=== PATIENT | female | born 1940 | race Caucasian/White ===

== ENCOUNTER 2016-08-15 14:51 | Inpatient (IN) | payer OTHER, MEDICAID, MEDICARE ==
[~2016-08-15] VITALS: Ht 154.9 cm; Wt 51.8 kg
--- NOTE | 2016-08-15 16:06 | PD ---
HPI Chief Complaint: Arteaga act Time Seen by Provider: 16:06 Travel History International Travel<30 days: No Contact w/Intl Traveler<30days: No Traveled to known affect area: No History of Present Illness HPI 76-year-old female came to the emergency room with history of major depression and suicidal ideation. She was Arteaga acted and brought in. Patient says that she had a hip surgery done 4 weeks ago and has been very lonely since then. Her a few years ago and she has been lonely since then. She has history of previous Arteaga act and depression and suicidal ideation. She is on antidepressants but seems like she has decompensated. Patient drinks occasional alcohol and denies of any drugs. She seemed cooperative and nonthreatening at this point but continues regarding the depression. Patient is very tearful. [facility] Past Medical History Narrative Medical List of her past medical, surgical, social and family history was reviewed from the nursing note. Social History Tobacco Use: No Allergies-Medications (Allergen,Severity, Reaction): Coded Allergies: No Known Allergies (Unverified , 08/15/16) Comments No known drug allergies. Reported Meds & Prescriptions Reported Meds & Active Scripts Active Reported Alendronate (Alendronate Sodium) 70 Mg Tab 70 Mg PO Q7D Narrative Medication List of her home medications reviewed from the nursing note. Review of Systems Except as stated in HPI: all other systems reviewed are Neg Physical Exam Narrative GENERAL: Awake, alert, elderly, tearful SKIN: Focused skin assessment warm/dry. HEAD: Atraumatic. Normocephalic. EYES: Pupils equal and round. No scleral icterus. No injection or drainage. ENT: No nasal bleeding or discharge. Mucous membranes pink and moist. NECK: Trachea midline. No JVD. CARDIOVASCULAR: Regular rate and rhythm. No murmur appreciated. RESPIRATORY: No accessory muscle use. Clear to auscultation. Breath sounds equal bilaterally. GASTROINTESTINAL: Abdomen soft, non-tender, nondistended. Hepatic and splenic margins not palpable. MUSCULOSKELETAL: No obvious deformities. No clubbing. No cyanosis. No edema. NEUROLOGICAL: Awake and alert. No obvious cranial nerve deficits. Motor grossly within normal limits. Normal speech. PSYCHIATRIC: Appropriate mood and affect; insight and judgment normal. Data Data Last Documented VS Vital Signs Date Time Temp Pulse Resp B/P Pulse Ox O2 Delivery O2 Flow Rate FiO2 08/16/16 10:43 56 16 151/68 93 Room Air 08/16/16 05:40 98.2 Orders Complete Blood Count With Diff (08/15/16 16:12) Comprehensive Metabolic Panel (08/15/16 16:12) Psych Screen (08/15/16 16:12) Drug Screen, Random Urine (08/15/16 16:12) Alcohol (Ethanol) (08/15/16 16:12) Urinalysis - C+S If Indicated (08/15/16 16:12) Thyroid Stimulating Hormone (08/15/16 16:12) Diet Regular Basic (08/15/16 Dinner) Diet Regular Basic (08/16/16 Breakfast) Urine Culture (08/16/16 01:45) Acetaminophen (Tylenol) (08/16/16 07:15) Diet Regular Basic (08/16/16 Lunch) Admit Order (Ed Use Only) (08/16/16 ) Admit To Inpatient Psych (08/16/16 ) Code Status (08/16/16 12:43) Vital Signs (Adult) [id number].[id number].E (08/16/16 12:43) Activity Oob Ad Elina (08/16/16 12:43) Level Of Observation (Psych) (08/16/16 12:43) Acetaminophen (Tylenol) (08/16/16 12:45) Magnesium Hydroxide Liq (Milk Of Magnesi (08/16/16 12:45) Al-Mag Hy-Si 40-40-4 Mg/Ml Liq (Mag-Al P (08/16/16 12:45) Basic Metabolic Panel (Bmp) (08/17/16 06:00) Lipid Profile (08/17/16 06:00) Hemoglobin (Hgb) A1c (08/17/16 06:00) Vitamin B12 (08/17/16 06:00) Pt Request For Service (08/16/16 12:43) Labs Laboratory Tests Test 08/15/16 08/16/16 16:42 01:45 Sodium Level 142 MEQ/L Potassium Level 3.9 MEQ/L Chloride Level 109 MEQ/L Carbon Dioxide Level 24.2 MEQ/L Anion Gap 9 MEQ/L Blood Urea Nitrogen 14 MG/DL Creatinine 0.60 MG/DL Estimat Glomerular Filtration 97 ML/MIN Rate Random Glucose 119 MG/DL Calcium Level 8.9 MG/DL Total Bilirubin 0.3 MG/DL Aspartate Amino Transf 19 U/L (AST/SGOT) Alanine Aminotransferase 14 U/L (ALT/SGPT) Alkaline Phosphatase 113 U/L Total Protein 7.4 GM/DL Albumin 3.9 GM/DL Thyroid Stimulating Hormone 0.914 uIU/ML 3rd Gen Urine Opiates Screen POS Urine Barbiturates Screen NEG Urine Amphetamines Screen NEG Urine Benzodiazepines Screen POS Urine Cocaine Screen NEG Urine Cannabinoids Screen NEG Ethyl Alcohol Level LESS THAN 3 MG/DL White Blood Count 9.8 TH/MM3 Red Blood Count 3.85 MIL/MM3 Hemoglobin 11.2 GM/DL Hematocrit 33.8 % Mean Corpuscular Volume 87.9 FL Mean Corpuscular Hemoglobin 29.0 PG Mean Corpuscular Hemoglobin 33.0 % Concent Red Cell Distribution Width 14.4 % Platelet Count 302 TH/MM3 Mean Platelet Volume 8.0 FL Neutrophils (%) (Auto) 59.7 % Lymphocytes (%) (Auto) 28.2 % Monocytes (%) (Auto) 8.9 % Eosinophils (%) (Auto) 2.9 % Basophils (%) (Auto) 0.3 % Neutrophils # (Auto) 5.9 TH/MM3 Lymphocytes # (Auto) 2.8 TH/MM3 Monocytes # (Auto) 0.9 TH/MM3 Eosinophils # (Auto) 0.3 TH/MM3 Basophils # (Auto) 0.0 TH/MM3 CBC Comment DIFF FINAL Differential Comment Urine Color YELLOW Urine Turbidity HAZY Urine pH 6.0 Urine Specific [place] 1.022 Urine Protein 30 mg/dL Urine Glucose (UA) NEG mg/dL Urine Ketones NEG mg/dL Urine Occult Blood NEG Urine Nitrite NEG Urine Bilirubin NEG Urine Urobilinogen LESS THAN 2.0 MG/DL Urine Leukocyte Esterase LARGE Urine RBC 82 /hpf Urine WBC 105 /hpf Urine Squamous Epithelial 4 /hpf Cells Urine Transitional Epithelial <1 /hpf Cells Urine Calcium Oxalate Crystals FEW /hpf Urine Bacteria RARE /hpf Urine Mucus FEW /lpf Microscopic Urinalysis Comment CULTURE INDICATED MDM Medical Decision Making Medical Screen Exam Complete: Yes Emergency Medical Condition: Yes Medical Record Reviewed: Yes Differential Diagnosis Major depression, suicidal ideation Narrative Course 4:42 PM awaiting for the blood test result to medically clear her. Patient will require psych screen. Procedures EKG Prior to Arrival: No Scripts Sertraline (Zoloft)100 Mg Avh325 Mg PO 2 daily #60 TAB Ref 0 Prov:Best Sam MD 08/18/16 Ropinirole (Requip)2 Mg Tab4 Mg PO 2 hs #60 TAB Ref 0 Prov:Best Sam MD 08/18/16 Oxybutynin (Ditropan)5 Mg Tab5 Mg PO BID #60 TAB Ref 0 Prov:Best Sam MD 08/18/16 Buspirone 10 Mg Tab10 Mg PO BID #60 TAB Ref 0 Prov:Best Sam MD 08/18/16 Atorvastatin 20 Mg Tab20 Mg PO HS #30 TAB Ref 0 Prov:Best Sam MD 08/18/16 Amlodipine (Norvasc)10 Mg Tab10 Mg PO DAILY #30 TAB Ref 0 Prov:Best Sam MD 08/18/16 Sanya Angelo MD Aug 15, 2016 16:06
[2016-08-15] MEDS ORDERED: ATOR20TA15 PO (16:21)
[2016-08-15] MEDS ORDERED: BUSP10TA PO (16:21)
[2016-08-15] MEDS ORDERED: ROPI4TAB PO (16:21)
[2016-08-15] MEDS ORDERED: AMLO10TA2 PO (16:21)
[2016-08-15] MEDS ORDERED: OXYB5TAB10 PO (16:21)
[2016-08-15] MEDS ORDERED: SERT-129 PO (16:21)
[2016-08-15] MEDS ORDERED: ALEN1TAB48 PO (16:21)
[2016-08-15 16:25] VITALS: BP 184/90; PULSE 65; RESP 20; TEMP 97.5; O2SAT 99
[2016-08-15 17:02] LABS: AUTOMATED NEUTROPHIL # 5.9 TH/MM3 (1.8-7.7); BASOPHIL % 0.3 % (0.0-2.0); EOSINOPHIL # 0.3 TH/MM3 (0-0.4); EOSINOPHIL % 2.9 % (0.0-4.0); HEMATOCRIT 33.8 % (35.0-46.0); HEMO FLAGS DIFF FINAL; LYMPH % 28.2 % (9.0-44.0); LYMPHOCYTE # 2.8 TH/MM3 (1.0-4.8); MEAN CELL VOLUME 87.9 FL (80.0-100.0); MONO % 8.9 % (0.0-8.0); NEUT % 59.7 % (16.0-70.0); PLATELET COUNT 302 TH/MM3 (150-450); RED BLOOD COUNT 3.85 MIL/MM3 (4.00-5.30); RED CELL DISTRIBUTION WIDTH 14.4 % (11.6-17.2); WHITE BLOOD COUNT 9.8 TH/MM3 (4.0-11.0)
[2016-08-15 17:36] LABS: ALT (GPT) 14 U/L (10-53); ANION GAP 9 MEQ/L (5-15); AST (GOT) 19 U/L (15-37); BICARBONATE 24.2 MEQ/L (21.0-32.0); BLOOD UREA NITROGEN 14 MG/DL (7-18); CHLORIDE 109 MEQ/L (98-107); GLOMERULAR FILTRATION RATE 97 ML/MIN (>89); POTASSIUM 3.9 MEQ/L (3.5-5.1); SODIUM (NA) 142 MEQ/L (136-145)
[2016-08-15 17:39] LABS: AMPHETAMINE, URINE NEG (NEG); BARBITURATES, URINE NEG (NEG); COCAINE, URINE NEG (NEG)
[2016-08-15 17:40] LABS: ALKALINE PHOSPHATASE 113 U/L (45-117); TOTAL BILIRUBIN ADULT 0.3 MG/DL (0.2-1.0)
[2016-08-15 22:05] VITALS: BP 186/79; PULSE 64; RESP 16; TEMP 97.6; O2SAT 97
[2016-08-16 01:43] VITALS: BP 147/65; PULSE 50; RESP 16; TEMP 98.1; O2SAT 93
[2016-08-16 02:04] LABS: BACTERIA, URINE RARE /hpf; BLOOD, URINE NEG (NEG); CALCIUM OXALATE CRYSTALS,URINE FEW /hpf; COMMENT (UR) CULTURE INDICATED; CULTURE IF INDICATED CULTURE INDICATED; GLUCOSE,URINE NEG (NEG); KETONE, URINE NEG (NEG); MUCUS URINE FEW /lpf (OCC); NITRITE,URINE NEG (NEG); SQUAMOUS EPITHELIAL CELL URINE 4 /hpf (0-5); TRANSITIONAL EPI CELLS, URINE <1 /hpf; URINE COLOR YELLOW (YELLW/STRAW)
[2016-08-16 05:40] VITALS: BP 131/64; PULSE 54; RESP 19; TEMP 98.2; O2SAT 94
[2016-08-16] MEDS ORDERED: ACETAMINOPHEN 325 MG TAB PO ONE (07:15)
[2016-08-16 10:43] VITALS: BP 151/68; PULSE 56; RESP 16; O2SAT 93
--- NOTE | 2016-08-16 12:39 | PD ---
History of Present Illness Chief Complaint: Depression Time Seen by Provider: 12:25 Travel History International Travel<30 Days: No Contact w/Intl Traveler<30days: No Known affected area: No Legal Status Legal Status: Arteaga Act Arteaga Act Signed By: ISRRAEL GALLEGOS History of Present Illness: History of Present Illness HPI 76-year-old female with reported history of depression who presents to the emergency room under a BA initiated by ISRRAEL at [facility]. The patient was seen at the office and verbalized that she did not care if she lived or . She also reported feeling very depressed. Stressors include the of her 2 and half years ago, no contact with family and no family in area, fell and fractured her hip 4 weeks ago, her car needs repair, the roof on her house needs repair and she has no money to take care of these issues. She states s she has been taking several different antidepressants but has had no significant benefit from such. EMR is reviewed. No previous contact with [facility] psychiatry dept. Toxicology positive for benzos and opiates which are prescribed. Patient is seen in J pod. Awake, alert. Fair hygiene. Decreased eye contact. Speech is clear and logical. No psychosis. Mood is depressed. Affect is tearful. She appears overwhelmed with multiple stressors. She is denying current sucidal ideation but states " who wouldn't want to kill themselves" . PFSH Past Medical History Depression: Yes Hypertension: Yes Influenza Vaccination: Yes ?: Not Menopausal: Yes Past Surgical History Neurologic Surgery: Yes (FX C SPINE ) Psychiatric History Psychiatric History Hx Psychiatric Treatment: HX: DEPRESSION, ANXIETY History of Inpatient Treatment: No Guns or firearms in home: No Social History female. Lives by herself. Hx Alcohol Use: Yes (occasional use) Hx Tobacco Use: No Hx Substance Use: No Hx of Substance Use Treatment: No Family Psychiatric History Negative Allergies-Medications (Allergen,Severity, Reaction): Coded Allergies: No Known Allergies (Unverified , 08/15/16) Reported Meds & Prescriptions Reported Meds & Active Scripts Active Reported Sertraline (Sertraline HCl) 100 Mg Tab 200 Mg PO DAILY Alendronate (Alendronate Sodium) 70 Mg Tab 70 Mg PO Q7D Buspirone (Buspirone HCl) 10 Mg Tab 10 Mg PO BID Ditropan (Oxybutynin Chloride) 5 Mg Tab 5 Mg PO BID Amlodipine (Amlodipine Besylate) 10 Mg Tab 10 Mg PO DAILY Atorvastatin (Atorvastatin Calcium) 20 Mg Tab 20 Mg PO HS Ropinirole 4 Mg Tab 4 Mg PO HS Review of Systems Constitutional: COMPLAINS OF: Change in appetite Endocrine: DENIES: Abnorml menstrual pattern, Heat/cold intolerance, Polydipsia , Polyuria, Polyphagia Eyes: DENIES: Blurred vision, Diplopia, Eye inflammation, Eye pain, Vision loss , Photosensitivity, Double Vision Ears, nose, mouth, throat: DENIES: Tinnitus, Hearing loss, Vertigo, Nasal discharge, Oral lesions, Throat pain, Hoarseness, Ear Pain, Running Nose, Epistaxis, Sinus Pain, Toothache, Odynophagia Respiratory: DENIES: Apneas, Cough, Snoring, Wheezing, Hemoptysis, Sputum production, Shortness of breath Cardiovascular: DENIES: Chest pain, Palpitations, Syncope, Dyspnea on Exertion , PND, Lower Extremity Edema, Orthopnea, Claudication Gastrointestinal: COMPLAINS OF: Anorexia Genitourinary: DENIES: Abnormal vaginal bleeding, Dysmenorrhea, Dyspareunia, Sexual dysfunction, Urinary frequency, Urinary incontinence, Urgency, Hematuria , Dysuria, Nocturia, Vaginal discharge Musculoskeletal: COMPLAINS OF: Back pain Integumentary: DENIES: Abnormal pigmentation, Pruritus, Rash, Nail changes, Breast masses, Breast skin changes, Nipple discharge Hematologic/lymphatic: DENIES: Bruising, Lymphadenopathy Immunologic/allergic: DENIES: Eczema, Urticaria Neurologic: COMPLAINS OF: Poor Balance (due to recent hip fx) Psychiatric: COMPLAINS OF: Depression, Suicidal Ideation Exam Alert: Yes Maiden: Person (ox4) Mood: Depressed Affect: Tearful Speech: Clear, Logical Eye Contact: None Memory Intact: Comment (not impaired) Hallucinations: Other (negative) Delusions: No Suicidal: Ideation (deneis at present) Homicidal: Ideation (Negative) Insight/Judgement Poor. Not impaired. MDM Medical Decision Making Medical Record Reviewed: Yes Assessment/Plan 76 year old female with hx of depression, multiple stressors who was placed under a BA at her doctor's office. Patient reported to them she was severely depressed and didn't care if she was alive or . The patient certainly presents with significant depression, no social or family support and failed response to current antidepressant treatment. At this time she meets criteria for increased in level of care such as inpatient treatment for further observation, to adjust medications, maintain safety. Orders Complete Blood Count With Diff (08/15/16 16:12) Comprehensive Metabolic Panel (08/15/16 16:12) Psych Screen (08/15/16 16:12) Drug Screen, Random Urine (08/15/16 16:12) Alcohol (Ethanol) (08/15/16 16:12) Urinalysis - C+S If Indicated (08/15/16 16:12) Thyroid Stimulating Hormone (08/15/16 16:12) Diet Regular Basic (08/15/16 Dinner) Diet Regular Basic (08/16/16 Breakfast) Urine Culture (08/16/16 01:45) Acetaminophen (Tylenol) (08/16/16 07:15) Diet Regular Basic (08/16/16 Lunch) Diet Regular Basic (08/16/16 Dinner) Results Vital Signs Date Time Temp Pulse Resp B/P Pulse Ox O2 Delivery O2 Flow Rate FiO2 08/16/16 10:43 56 16 151/68 93 Room Air 08/16/16 05:40 98.2 54 19 131/64 94 Room Air 08/16/16 01:43 98.1 50 16 147/65 93 Room Air 08/15/16 22:05 97.6 64 16 186/79 97 Room Air 08/15/16 16:25 97.5 65 20 184/90 99 Laboratory Tests Test 08/15/16 08/16/16 16:42 01:45 Sodium Level 142 Potassium Level 3.9 Chloride Level 109 Carbon Dioxide Level 24.2 Anion Gap 9 Blood Urea Nitrogen 14 Creatinine 0.60 Estimat Glomerular Filtration 97 Rate Random Glucose 119 Calcium Level 8.9 Total Bilirubin 0.3 Aspartate Amino Transf 19 (AST/SGOT) Alanine Aminotransferase 14 (ALT/SGPT) Alkaline Phosphatase 113 Total Protein 7.4 Albumin 3.9 Thyroid Stimulating Hormone 0.914 3rd Gen Urine Opiates Screen POS Urine Barbiturates Screen NEG Urine Amphetamines Screen NEG Urine Benzodiazepines Screen POS Urine Cocaine Screen NEG Urine Cannabinoids Screen NEG Ethyl Alcohol Level LESS THAN 3 White Blood Count 9.8 Red Blood Count 3.85 Hemoglobin 11.2 Hematocrit 33.8 Mean Corpuscular Volume 87.9 Mean Corpuscular Hemoglobin 29.0 Mean Corpuscular Hemoglobin 33.0 Concent Red Cell Distribution Width 14.4 Platelet Count 302 Mean Platelet Volume 8.0 Neutrophils (%) (Auto) 59.7 Lymphocytes (%) (Auto) 28.2 Monocytes (%) (Auto) 8.9 Eosinophils (%) (Auto) 2.9 Basophils (%) (Auto) 0.3 Neutrophils # (Auto) 5.9 Lymphocytes # (Auto) 2.8 Monocytes # (Auto) 0.9 Eosinophils # (Auto) 0.3 Basophils # (Auto) 0.0 CBC Comment DIFF FINAL Differential Comment Urine Color YELLOW Urine Turbidity HAZY Urine pH 6.0 Urine Specific [place] 1.022 Urine Protein 30 Urine Glucose (UA) NEG Urine Ketones NEG Urine Occult Blood NEG Urine Nitrite NEG Urine Bilirubin NEG Urine Urobilinogen LESS THAN 2.0 Urine Leukocyte Esterase LARGE Urine RBC 82 Urine WBC 105 Urine Squamous Epithelial 4 Cells Urine Transitional Epithelial <1 Cells Urine Calcium Oxalate Crystals FEW Urine Bacteria RARE Urine Mucus FEW Microscopic Urinalysis Comment CULTURE INDICATED Date/Time Procedure Status Source Growth 08/16/16 01:45 Urine Culture Received Urine Clean Catch Pending Diagnosis Primary Impression: Depression Admitting Information Admitting Physician Requests: Admit (Dr. Sam) Problem Qualifiers Primary Impression: Depression Qualified Code: F32.1 - Moderate single current episode of major depressive disorder Roxy Cody Aug 16, 2016 12:39
[2016-08-16] MEDS ORDERED: MAGNESIUM HYDROXIDE SUSP 30 ML CUP PO PRN ×2 (12:45→15:15)
[2016-08-16] MEDS ORDERED: ALUMINUM/MAGNESIUM/SIMETH 30 ML CUP PO PRN ×2 (12:45→15:15)
[2016-08-16] MEDS ORDERED: ACETAMINOPHEN 325 MG TAB PO PRN ×2 (12:45→15:15)
[2016-08-16 14:30] VITALS: BP 151/68; PULSE 56; RESP 16; O2SAT 93
[2016-08-16 14:55] VITALS: BP_SYST 141; BP_SYST 188; BP_DIAS 56; BP_DIAS 72; PULSE 61; PULSE 86; RESP 16; TEMP 96.8; O2SAT 97; O2SAT 98
[2016-08-16] MEDS ORDERED: ALENDRONATE SODIUM 70 MG TAB PO SCH (15:15)
[2016-08-16] MEDS: SERTRALINE HCL 100 MG TAB PO SCH (15:45)
--- NOTE | 2016-08-16 15:45 | HHI.HP ---
Provisional Diagnosis Admission Date Aug 16, 2016 at 12:46 [place] I. Major depressive disorder recurrent severe without psychosis f 33.2 Certification of Person's Competence To Provide Express and Informed Consent I have personally examined Indigo Tong , a person being served at [facility] on, Aug 16, 2016 15:23. Express and informed consent means consent voluntarily given in writing, by a competent person, after sufficient explanation and disclosure of the subject matter involved to enable the person to make a knowing and willful decision without any element of force, fraud, deceit, duress, or other form of constraint or coercion. This person is 18 years of age or older, is not now known to be incompetent to consent to treatment with a guardian advocate, and does not have a health care surrogate or proxy currently making medical treatment decisions. I have found this person to be one of the following: [xxx] Competent to provide express and informed consent, as defined above, for voluntary admission to this facility and is competent to provide express and informed consent for treatment. He/she has the consistent capacity to make well reasoned, willful, and knowing decisions concerning his or her medical or mental health treatment. The person fully and consistently understands the purpose of the admission for examination/placement and is fully capable of personally exercising all rights assured [place] Incompetent to provide express and informed consent to voluntary admission, and this is incompetent to provide express and informed consent to treatment. The person must be transferred to involuntary status and a petition for a guardian advocate filed with the Circuit Court. [] Refusing to provide express and informed consent to voluntary admission but is competent to provide express and informed consent for treatment. The person must be discharged or transferred to involuntary status. Form shall be completed within 24 hours of a person's arrival at the receiving facility and filed in the clinical record of each person: 1. Admitted on a voluntary basis 2. Permitted to provide express and informed consent to his/her own treatment 3. Allowed to transfer from involuntary to voluntary status 4. Prior to permitting a person to consent to his or her own treatment after having been previously found incompetent to consent to treatment. History of Present Illness Capacity: Has Capacity HPI Patient is a 76-year-old white female comes here under [place] act signed by Ximena ARCOS 80 08/15/16 at 11:36 AM that document reviewed essentially stating that patient does not care whether she lives or dies states she is severely depressed is [place] acted about 2 or 3 years ago she also stated that she has no contact with family and . Patient seen screened in the ED urine toxicology positive for opiates and benzodiazepines. At the present time patient sitting quietly in a chair in the [place] her Brie present throughout session. Patient then slight slender white female alcohol the walker secondary to her for a fractured hip 4 weeks ago. She also gives a history of a fractured neck over a year ago. She is also distress with a of her of 30+ years but 20th of years ago. And the fact that she has no significant indication with her 4 adult children. She states she is very lonely. She has no significant support group here in town. She does acknowledge prior history of depression has seen a psychiatrist in the past did overdose one time on one of her medications. She is on Zoloft at the present time being prescribed by her PCP. Is any other inpatient psychiatric hospitalization she said she was at [facility]. [place] that she denies any history of physical or sexual abuse. Denies any alcohol or drug use. She denies any voices or visions with this. Says her sleep is somewhat increased, and somewhat productive. Sister appetite is fair. She denies voices or visions with this. As mentioned denies any self-medicating. She lives by herself she has 2 cats that are control room tender for her. Of interest patient denies any opiate or benzodiazepine use. Will recheck the urine tox tomorrow In any event at the present time patient does meet criteria for an acute inpatient psychiatric hospitalization to monitor safety stability medication management and also to reevaluate her medical condition. However I do feel patient has capacity to make decisions concerning her admission her care thus I' ll lift the [place] act allow her sign voluntary. We will of hospitalist consult with us. We'll continue her medications per the med reconciliation consider the addition of a small dose of Seroquel and one or 2 days if she does not improve with the ability Review of Systems Constitutional: COMPLAINS OF: Weight loss, DENIES: Diaphoretic episodes, Fatigue, Fever, Chills, Dizziness, Change in appetite, Night Sweats Endocrine: DENIES: Abnorml menstrual pattern, Heat/cold intolerance, Polydipsia , Polyuria, Polyphagia Eyes: DENIES: Blurred vision, Diplopia, Eye inflammation, Eye pain, Vision loss , Photosensitivity, Double Vision Ears, nose, mouth, throat: DENIES: Tinnitus, Hearing loss, Vertigo, Nasal discharge, Oral lesions, Throat pain, Hoarseness, Ear Pain, Running Nose, Epistaxis, Sinus Pain, Toothache, Odynophagia Respiratory: DENIES: Apneas, Cough, Snoring, Wheezing, Hemoptysis, Sputum production, Shortness of breath Cardiovascular: DENIES: Chest pain, Palpitations, Syncope, Dyspnea on Exertion , PND, Lower Extremity Edema, Orthopnea, Claudication Gastrointestinal: DENIES: Abdominal pain, Black stools, Bloody stools, Constipation, Diarrhea, Nausea, Vomiting, Difficulty Swallowing, Anorexia Genitourinary: DENIES: Abnormal vaginal bleeding, Dysmenorrhea, Dyspareunia, Sexual dysfunction, Urinary frequency, Urinary incontinence, Urgency, Hematuria , Dysuria, Nocturia, Vaginal discharge Musculoskeletal: COMPLAINS OF: Joint pain Integumentary: DENIES: Abnormal pigmentation, Pruritus, Rash, Nail changes, Breast masses, Breast skin changes, Nipple discharge Hematologic/lymphatic: DENIES: Bruising, Lymphadenopathy Immunologic/allergic: DENIES: Eczema, Urticaria Neurologic: COMPLAINS OF: Abnormal gait (secondary to fractured hip), Poor Balance Psychiatric: COMPLAINS OF: Anxiety, Depression, Suicidal Ideation (though denies any intent or plan) Past Psych History Psychological trauma history Denies physical or sexual abuse Violence risk - others (6 mos) Low Violence risk - self (6 mos) Low Substance Abuse History Drugs/Alcohol past 12 months Denies Past Family Social History Coded Allergies: No Known Allergies (Unverified , 08/15/16) Past Medical History History fracture neck fractured hip Reported Medications Sertraline 100 Mg [id number] Mg PO DAILY Ref 0 08/15/16 Alendronate 70 Mg Tab70 Mg PO Q7D Ref 0 08/15/16 Buspirone 10 Mg Tab10 Mg PO BID Ref 0 08/15/16 Oxybutynin (Ditropan)5 Mg Tab5 Mg PO BID Ref 0 08/15/16 Amlodipine 10 Mg Tab10 Mg PO DAILY Ref 0 08/15/16 Atorvastatin 20 Mg Tab20 Mg PO HS Ref 0 08/15/16 Ropinirole 4 Mg Tab4 Mg PO HS Ref 0 08/15/16 Current Medications Medications (Trade) Dose Ordered Sig/Akhil Route Start Time Stop Time Status Last Admin (Tylenol) 650 mg Q4H PRN PO 08/16/16 12:45 (Milk Of Magnesia Liq) 30 ml DAILY PRN PO 08/16/16 12:45 (Mag-Al Plus Susp Liq) 30 ml Q6H PRN PO 08/16/16 12:45 (Norvasc) 10 mg DAILY PO 08/17/16 09:00 (Lipitor) 20 mg HS PO 08/16/16 21:00 (Buspar) 10 mg BID PO 08/16/16 21:00 (Ditropan) 5 mg BID PO 08/16/16 21:00 (Requip) 4 mg HS PO 08/16/16 21:00 (Tylenol) 650 mg Q4H PRN PO 08/16/16 15:15 UNV (Milk Of Magnesia Liq) 30 ml DAILY PRN PO 08/16/16 15:15 UNV (Mag-Al Plus Susp Liq) 30 ml Q6H PRN PO 08/16/16 15:15 UNV (Fosamax) 70 mg Q7D PO 08/16/16 15:15 UNV (Zoloft) 200 mg DAILY PO 08/16/16 15:15 UNV Family History Denies mental health issues and family Social History Patient about 2 years ago still refer her is somewhat ostracized from her 4 adult children Patient's Strengths (min. 2) Patient verbal able access healthcare cooperative Physical Exam Patient seen screened in ED exam reviewed and agreed with patient sitting in chair in [place] using walker patient no acute distress she is thin the slight slender neck is supple, in no respiratory distress, abdomen soft, there is some decreased range of motion in both legs primarily in her right no abnormal motor movements noted Vital Signs Vital Signs Date Time Temp Pulse Resp B/P Pulse Ox O2 Delivery O2 Flow Rate FiO2 08/16/16 14:55 96.8 61 16 188/72 98 08/16/16 14:30 Room Air Mental Status Examination Alert oriented then slender white female she short crewcut graying hair calm cooperative with good eye contact occasionally somewhat tearful occasional small smile Appearance Clean the Speech: Unremarkable Orientation: x3 Memory: Unremarkable Thought Process: Logical Thought Content: Unremarkable Language Fair Fund of Knowledge Fair Hallucination Type: None Attention and Concentration: Good Suicidal Ideation: No Previous Suicide Attempts: No Homicidal Ideation: No Previous Homicide Attempts: No Insight: Fair Judgment: WNL (fair) Affect: Other Mood: Sad (slight increased range and intensity) Motor Activity: Abnormal gait-specify (secondary to fractured hip) Assessment & Plan Problem List: (1) Major depressive disorder, recurrent severe without psychotic features ICD Code: F33.2 Assessment & Plan Estimated LOS: 3-5 days at this time patient meets criteria for inpatient psychiatric hospitalization I feel she has capacity sign for medications at admission thus I'll lift [place] act allow her sign voluntary. Will adjust medications will hospitalist assessment will have PT also games dealer. We also need to see if our counselors can help us find some socialization for this lady she appears quite lonely Discharge Planning To be determined Request HC Surrog/Guard Advoc?: No Best Sam MD Aug 16, 2016 15:45
[2016-08-16] MEDS: OXYBUTYNIN CHLORIDE 5 MG TAB PO SCH (21:37)
[2016-08-16] MEDS: busPIRone HCL 10 MG TAB PO SCH (21:37)
[2016-08-16] MEDS: ATORVASTATIN 20 MG TAB PO SCH (21:37)
[2016-08-17 05:40] VITALS: BP 119/58; PULSE 51; RESP 14; TEMP 99.3; O2SAT 94
[2016-08-17] MEDS: busPIRone HCL 10 MG TAB PO SCH ×2 (09:11→21:22)
[2016-08-17] MEDS: OXYBUTYNIN CHLORIDE 5 MG TAB PO SCH ×2 (09:11→21:22)
[2016-08-17] MEDS: SERTRALINE HCL 100 MG TAB PO SCH (09:11)
[2016-08-17 11:26] LABS: ANION GAP 7 MEQ/L (5-15); BICARBONATE 27.8 MEQ/L (21.0-32.0); BLOOD UREA NITROGEN 15 MG/DL (7-18); CHLORIDE 106 MEQ/L (98-107); GLOMERULAR FILTRATION RATE 132 ML/MIN (>89); POTASSIUM 3.8 MEQ/L (3.5-5.1); SODIUM (NA) 141 MEQ/L (136-145)
[2016-08-17 11:55] LABS: LDL CHOLESTEROL 42 MG/DL (0-99)
--- NOTE | 2016-08-17 14:04 | PD.CONS ---
[facility] By Cecy Reason for Consult Medical management Primary Care Physician Abraham Sylvester MD Diagnoses: History of Present Illness Written by ISRRAEL Pennington acting as scribe for [Sekou] on 08/17/16 at 12:05. 76 y/o female with a history of depression, htn and HLD came to the hospital because she was more depressed than normal. [facility] was consulted for medical management. 4 weeks ago she had a right hip replacement and went to rehab but after rehab she was home and was feeling lonely. She does not feel she belongs in the psych department and feels it is making her worse. She denies any chest pain, sob, fever or chills. Review of Systems Constitutional: DENIES: Fever, Chills, Change in appetite Respiratory: DENIES: Cough, Sputum production, Shortness of breath Cardiovascular: DENIES: Chest pain Gastrointestinal: DENIES: Abdominal pain, Constipation, Diarrhea, Nausea, Vomiting Genitourinary: DENIES: Hematuria, Dysuria Musculoskeletal: DENIES: Back pain, Neck pain Neurologic: DENIES: Headache Psychiatric: COMPLAINS OF: Depression Past Family Social History Allergies: Coded Allergies: No Known Allergies (Unverified , 08/15/16) Past Medical History HTN HLD Depression Past Surgical History Right hip replacement cervical spine surgery Morphine pump implant Reported Medications Reported Meds & Active Scripts Active Reported Sertraline (Sertraline HCl) 100 Mg Tab 200 Mg PO DAILY Alendronate (Alendronate Sodium) 70 Mg Tab 70 Mg PO Q7D Buspirone (Buspirone HCl) 10 Mg Tab 10 Mg PO BID Ditropan (Oxybutynin Chloride) 5 Mg Tab 5 Mg PO BID Amlodipine (Amlodipine Besylate) 10 Mg Tab 10 Mg PO DAILY Atorvastatin (Atorvastatin Calcium) 20 Mg Tab 20 Mg PO HS Ropinirole 4 Mg Tab 4 Mg PO HS Active Ordered Medications Current Medications Medications (Trade) Dose Ordered Sig/Akhil Route Start Time Stop Time Status Last Admin (Tylenol) 650 mg Q4H PRN PO 08/16/16 12:45 (Milk Of Magnesia Liq) 30 ml DAILY PRN PO 08/16/16 12:45 (Mag-Al Plus Susp Liq) 30 ml Q6H PRN PO 08/16/16 12:45 (Norvasc) 10 mg DAILY PO 08/17/16 09:00 08/17/16 09:11 (Lipitor) 20 mg HS PO 08/16/16 21:00 08/16/16 21:37 (Buspar) 10 mg BID PO 08/16/16 21:00 08/17/16 09:11 (Ditropan) 5 mg BID PO 08/16/16 21:00 08/17/16 09:11 (Requip) 4 mg HS PO 08/16/16 21:00 08/16/16 21:39 (Zoloft) 200 mg DAILY PO 08/16/16 15:45 08/17/16 09:11 Family History Mom: Breast CA Dad: Emphysema Social History Tobacco use: Quit 30 years ago Alcohol use: socially Illicit drug use: denies Physical Exam Vital Signs Vital Signs Date Time Temp Pulse Resp B/P Pulse Ox O2 Delivery O2 Flow Rate FiO2 08/17/16 05:40 99.3 51 14 119/58 94 08/16/16 14:55 96.8 61 16 188/72 98 08/16/16 14:30 56 16 151/68 93 Room Air Physical Exam GENERAL: This is a well-nourished, well-developed patient, in no apparent distress. SKIN: No rashes, ecchymoses or lesions. Cool and dry. HEAD: Atraumatic. Normocephalic. No temporal or scalp tenderness. EYES: Pupils equal round and reactive. Extraocular motions intact. ENT: Nose without bleeding, purulent drainage or septal hematoma. Airway patent. NECK: Trachea midline. No JVD or lymphadenopathy. Supple, nontender, no meningeal signs. CARDIOVASCULAR: Regular rate and rhythm without murmurs, gallops, or rubs. RESPIRATORY: Clear to auscultation. Breath sounds equal bilaterally. No wheezes , rales, or rhonchi. GASTROINTESTINAL: Abdomen soft, non-tender, nondistended. No guarding. MUSCULOSKELETAL: Extremities without clubbing, cyanosis, or edema. No joint tenderness, effusion, or edema noted. No calf tenderness. NEUROLOGICAL: Awake and alert. Motor and sensory grossly within normal limits. Five out of 5 muscle strength in all muscle groups. Normal speech. Laboratory Laboratory Tests Test 08/17/16 10:09 Sodium Level 141 Potassium Level 3.8 Chloride Level 106 Carbon Dioxide Level 27.8 Anion Gap 7 Blood Urea Nitrogen 15 Creatinine 0.46 Estimat Glomerular Filtration 132 Rate Random Glucose 93 Calcium Level 8.6 Triglycerides Level 150 Cholesterol Level 111 LDL Cholesterol 42 HDL Cholesterol 39.0 Cholesterol/HDL Ratio 2.84 Vitamin B12 Level 572 Date/Time Procedure Status Source Growth 08/16/16 01:45 Urine Culture Received Urine Clean Catch Pending Result Diagram: 08/15/16 1642 08/17/16 1009 Assessment and Plan Problem List: (1) HTN (hypertension) ICD Code: I10 Status: Acute (2) HLD (hyperlipidemia) ICD Code: E78.5 Status: Chronic (3) Major depressive disorder, recurrent severe without psychotic features ICD Code: F33.2 Status: Chronic Assessment and Plan 76 y/o female with a history of depression, htn and HLD came to the hospital because she was more depressed than normal. [facility] was consulted for medical management. Major depressive disorder -Managed by psychiatry HTN, chronic, stable -Cont home amlodipine -Monitor vitals -Will order PRNs if needed HLD, chronic -Cont home dose Lipitor DVT prophylaxis: Ambulation This note was transcribed by scribe [Natacha Foreman]. I, Dr. Low Sapp personally performed the history, physical exam, and medical decision making; and confirmed the accuracy of the information in the transcribed note. Authenticated by Dr. Low Sapp on 08/17/16 at 1210. Thank you for the consult. We will sign off for now. Please call with questions and reconsult if needed. Discussed Condition With Patient Natacha Foreman Aug 17, 2016 14:04 Low Sapp MD Aug 17, 2016 16:35
--- NOTE | 2016-08-17 15:23 | HHI.PYPN ---
Subjective Remarks Patient seen on unit with floor staff, chart reviewed,, patient continues depressed and sad though she is more reactive right now did sleep better last night. Though she is still tearful and refrained her and her living situation. I feel patient would benefit from increased socialization that is available on 2599 will transfer patient to that unit continue treatment Review of Systems Except as stated in HPI: all other systems reviewed are Neg Objective Alert: Yes [place]: Person (ox4) Mood: Depressed Affect: Tearful Memory Intact: Comment (not impaired) Hallucinations: Other (negative) Delusions: No Delusion Type: Other (denied) Suicidal: Ideation (deneis at present) Homicidal: Ideation (Negative) Insight/Judgment Poor Labs Test 08/17/16 10:09 Sodium Level 141 MEQ/L Potassium Level 3.8 MEQ/L Chloride Level 106 MEQ/L Carbon Dioxide Level 27.8 MEQ/L Anion Gap 7 MEQ/L Blood Urea Nitrogen 15 MG/DL Creatinine 0.46 MG/DL Estimat Glomerular Filtration 132 ML/MIN Rate Random Glucose 93 MG/DL Calcium Level 8.6 MG/DL Triglycerides Level 150 MG/DL Cholesterol Level 111 MG/DL LDL Cholesterol 42 MG/DL HDL Cholesterol 39.0 MG/DL Cholesterol/HDL Ratio 2.84 RATIO Vitamin B12 Level 572 PG/ML Date/Time Procedure Status Source Growth 08/16/16 01:45 Urine Culture - Preliminary Resulted Urine Clean Catch Group D Enterococcus Vitals/IOs Vital Signs Date Time Temp Pulse Resp B/P Pulse Ox O2 Delivery O2 Flow Rate FiO2 08/17/16 05:40 99.3 51 14 119/58 94 08/16/16 14:30 Room Air Intake and Output 08/16/16 08/16/16 08/17/16 08:00 16:00 00:00 Intake Total 240 ml Balance 240 ml Assessment & Plan Problem List: (1) Major depressive disorder, recurrent severe without psychotic features ICD Code: F33.2 Assessment & Plan Estimated LOS: days patient continues depressed, compliant medication, still feels quite lonely. I feel patient would be better treated on 2599 with his increase socialization will transfer to that unit Justification for Cont. Inpt. At this time patient will decompensate placed in a lower level of care Discharge Planning To be determined Request HC Surrog/Guard Advoc?: No Best Sam MD Aug 17, 2016 15:23
[2016-08-17 16:15] LABS: HEMOGLOBIN A1a 1.2 %; HEMOGLOBIN A1b 0.7 %; HEMOGLOBIN Ao 85.8 %; HEMOGLOBIN F 1.1 %; HEMOGLOBIN LA1C 1.9 %; HEMOGLOBIN P3 3.7 %
[2016-08-17 18:02] VITALS: BP 124/60; PULSE 59; RESP 16; TEMP 99; O2SAT 97
[2016-08-17] MEDS: ATORVASTATIN 20 MG TAB PO SCH (21:22)
[2016-08-18 06:32] VITALS: BP 135/59; PULSE 62; RESP 16; TEMP 97.9; O2SAT 94
[2016-08-18] MEDS: OXYBUTYNIN CHLORIDE 5 MG TAB PO SCH (09:45)
[2016-08-18] MEDS: busPIRone HCL 10 MG TAB PO SCH (09:45)
[2016-08-18] MEDS: SERTRALINE HCL 100 MG TAB PO SCH (09:45)
[2016-08-18] MEDS ORDERED: ATOR20TA15 PO (11:13)
[2016-08-18] MEDS ORDERED: OXYB5TAB10 PO (11:13)
[2016-08-18] MEDS ORDERED: BUSP10TA PO (11:13)
[2016-08-18] MEDS ORDERED: AMLO10 PO (11:13)
[2016-08-18] MEDS ORDERED: ROPI2 PO (11:13)
[2016-08-18] MEDS ORDERED: ZOLO100T PO (11:13)
--- NOTE | 2016-08-18 11:19 | HHI.DS ---
Psychiatry Discharge Summary Inpatient Psychiatric care?: Yes Advance Directive: No Reason Not Provided: gave [facility] AdvanceDirective: No Health Care Proxy: No Admission Admission Date Aug 16, 2016 at 12:46 Admission Diagnosis: (1) Major depressive disorder, recurrent severe without psychotic features ICD Code: F33.2 Brief History Patient is a 76-year-old white female comes here under [place] act signed by Ximena Gaston 08/15/16 at 11:36 AM that document reviewed essentially stating that patient does not care whether she lives or dies states she is severely depressed is [place] acted about 2 or 3 years ago she also stated that she has no contact with family and . Patient seen screened in the ED urine toxicology positive for opiates and benzodiazepines. At the present time patient sitting quietly in a chair in the [place] her [place] present throughout session. Patient then slight slender white female alcohol the walker secondary to her for a fractured hip 4 weeks ago. She also gives a history of a fractured neck over a year ago. She is also distress with a of her of 30+ years but 20th of years ago. And the fact that she has no significant indication with her 4 adult children. She states she is very lonely. She has no significant support group here in town. She does acknowledge prior history of depression has seen a psychiatrist in the past did overdose one time on one of her medications. She is on Zoloft at the present time being prescribed by her PCP. Is any other inpatient psychiatric hospitalization she said she was at [facility]. [place] [place] that she denies any history of physical or sexual abuse. Denies any alcohol or drug use. She denies any voices or visions with this. Says her sleep is somewhat increased, and somewhat productive. Sister appetite is fair. She denies voices or visions with this. As mentioned denies any self-medicating. She lives by herself she has 2 cats that are pot feeder for her. Of interest patient denies any opiate or benzodiazepine use. Will recheck the urine tox tomorrow In any event at the present time patient does meet criteria for an acute inpatient psychiatric hospitalization to monitor safety stability medication management and also to reevaluate her medical condition. However I do feel patient has capacity to make decisions concerning her admission her care thus I' ll lift the [place] act allow her sign voluntary. We will of hospitalist consult with us. We'll continue her medications per the med reconciliation consider the addition of a small dose of Seroquel and one or 2 days if she does not improve with the ability Tobacco Use In Past 30 Days: No Tobacco Past 30 Days Alcohol Use: 2-4 Times Per Month Hospital Course Patient's mood improved fairly rapidly with her participation in milieu especially when transferred to the 2600 unit. She was compliant with the medications. She consistently and persistently denied suicidality homicidality voices or visions. She said she was feeling better and sleeping better. She also stated that she missed her to her pet cats quite a bit wanted to get home to them. She did request discharge today. Patient does not meet criteria for involuntary psychiatric hospitalization. I will respect her request patient to be discharged states were self Rx 1 month strong recommendation for mental health follow-up through [employer] act, strong recommendation for follow- up with [facility] outpatient support groups. Thus patient will be discharged today Results Blood Pressure 135 / 59 Vital Signs Date Time Temp Pulse Resp B/P Pulse Ox O2 Delivery O2 Flow Rate FiO2 08/18/16 06:32 97.9 62 16 135/59 94 08/16/16 14:30 Room Air Laboratory Tests Test 08/15/16 08/16/16 08/17/16 16:42 01:45 10:09 Chloride Level 109 MEQ/L (98-107) Random Glucose 119 MG/DL (74-106) Urine Opiates Screen POS (NEG) Urine Benzodiazepines Screen POS (NEG) Red Blood Count 3.85 MIL/MM3 (4.00-5.30) Hemoglobin 11.2 GM/DL (11.6-15.3) Hematocrit 33.8 % (35.0-46.0) Monocytes (%) (Auto) 8.9 % (0.0-8.0) Urine Turbidity HAZY (CLEAR) Urine Protein 30 mg/dL (NEG-TRACE) Urine Leukocyte Esterase LARGE (NEG) Urine RBC 82 /hpf (0-3) Urine WBC 105 /hpf (0-5) Urine Calcium Oxalate Crystals FEW /hpf (NONE) Urine Bacteria RARE /hpf (NONE) Urine Mucus FEW /lpf (OCC) Creatinine 0.46 MG/DL (0.50-1.00) Cholesterol Level 111 MG/DL (120-200) HDL Cholesterol 39.0 MG/DL (40.0-60.0) Laboratory Results Test 08/17/16 10:09 Hemoglobin A1c 5.4 % (4.3-6.0) Triglycerides Level 150 MG/DL (42-150) Cholesterol Level 111 MG/DL (120-200) LDL Cholesterol 42 MG/DL (0-99) HDL Cholesterol 39.0 MG/DL (40.0-60.0) Summary of Procedures None done Pending results at discharge: No Medications # of Antipsychotic meds at D/C: 0 Approp Antipsych med options 1 - Minimum of three failed multiple trials of monotherapy. 2 - Documented plan to taper to monotherapy due to previous use of multiple meds OR cross-taper in progress at D/C. 3 - Documentation of augmentation of Clozapine. 4 - Justification other than those listed in allowable values 1-3, document here : Discharge Discharge Date: Aug 18, 2016 Discharge Diagnosis: (1) Major depressive disorder, recurrent severe without psychotic features Diagnosis: Principal ICD Code: F33.2 Mental Status Exam at Disch Alert oriented white female appears stated age sitting quietly in the day room, she has normal active with slight guarding when she walks secondary to her 1 month old hip surgery. She is euthymic to moderately depressed good range intensity were affect. Speech rate and rhythm are within normal limits though no formal thought disorders. No auditory or visual hallucinations no delusions noted insight and judgment is poor to fair. Cognition grossly intact Pt Condition on Discharge: Stable Discharge Disposition: Discharge Home Discharge Instructions Diet Instructions: As Tolerated, No Restrictions Activities you can perform: Regular-No Restrictions Scheduled Appointment: Kyler Aguirre (also referred to [facility] outpatient) Discharge Time > 30 minutes Discharge/Advance Care Plan Health Problems: (1) Major depressive disorder, recurrent severe without psychotic features Goals to promote your health * To prevent worsening of your condition and complications * To maintain your health at the optimal level Directions to meet your goals Take your medications as prescribed Follow your dietary instruction Follow activity as directed Keep your appointments as scheduled Take your immunizations and boosters as scheduled If your symptoms worsen call your PCP, if no PCP go to Urgent Care Center or Emergency Room For 25/09 questions related to your inpatient stay or results of tests pending at discharge, please contact Dr. Best Sam at Smoking is Dangerous to Your Health. Avoid second hand smoking Best Sam MD Aug 18, 2016 11:19
== END 2016-08-18 15:15 | disposition home or self-care (01) | DRG 885 ==
LOC: NEPD 14:51 → NEDA 08-16 12:46 → H250 08-16 14:10 → H260 08-17 17:24
PROVIDERS: ADMIT Psychiatry & Neurology Psychiatry; ATTEND Psychiatry & Neurology Psychiatry
DX: F33.2 Major depressive disorder, recurrent severe without psychotic features (principal); R45.851 Suicidal ideations; I10 Essential (primary) hypertension; E78.5 Hyperlipidemia, unspecified; Z96.641 Presence of right artificial hip joint; Z87.891 Personal history of nicotine dependence
CPT/HCPCS: 80048; 80053; 80061; 80307; 81001; 82607; 83036; 84443; 85025; 87077; 87086; 87186